=== PATIENT | female | born 1970 | race Caucasian/White ===

== ENCOUNTER 2016-04-15 23:05 | Emergency (ER) | payer OTHER ==
[~2016-04-15 23:05] MED LIST: ALBUTEROL17 GM INH; AVELOX400 MG PO; BENZONATATE PO; CELEBREX PO; CIPRO PO; CLINDAMYCIN HC300 MG PO; FLEXERIL PO; GUAIFENSEN DM; MEDROL DOSEPAK4 MG PO; MOTRIN100 MG/5 M PO; ORUDIS75 M1 DOB; PREDNISONE PO; PRILOSEC PO; TUSSIONEX PENN473 ML PO; VICODIN PO
== END 2016-04-15 23:30 | disposition home or self-care (01) ==
LOC: CFTX 23:05
DX: M25.562 Pain in left knee (principal); G89.29 Other chronic pain; F17.210 Nicotine dependence, cigarettes, uncomplicated
CPT/HCPCS: 99282

== ENCOUNTER 2016-05-03 07:48 | Emergency (ER) | payer OTHER | END 2016-05-03 08:37 | disposition home or self-care (01) | LOC: CED 07:48 | DX: G89.29 Other chronic pain (principal); M25.562 Pain in left knee; K21.9 Gastro-esophageal reflux disease without esophagitis; F17.210 Nicotine dependence, cigarettes, uncomplicated; Z90.89 Acquired absence of other organs; Z98.51 Tubal ligation status | CPT/HCPCS: 96372; 99283; J1885 ==